=== PATIENT | male | born 1960 | race Caucasian/White ===

== ENCOUNTER 2022-03-11 08:49 | Outpatient (REF) | payer BC, SELFPAY ==
[2022-03-11 10:26] LABS: MANUAL DIFF FLAG NO
[2022-03-11 10:29] LABS: Basophils Percent Auto 0.4 % (0-2); Eosinophils Percent Auto 0.7 % (0-4); Hematocrit 43.8 % (42.0-52.0); Hemoglobin 14.5 g/dl (14.0-18.0); Imm Gran Abs Auto 0.02 X10*3/uL (0.00-0.03); Imm Gran Pct Auto 0.4 % (0.0-0.4); Lymphocytes Absolute Auto 1.3 X10*3/uL (1.2-4.9); Lymphocytes Percent Auto 23.2 % (20-40); Mean Corpuscular HGB Conc 33.1 g/dl (31.0-36.0); Mean Corpuscular Hemoglobin 31.9 pg (27.0-33.0); Mean Corpuscular Volume 96.3 fL (80.0-98.0); Mean Platelet Volume 9.4 fL (9.4-12.4); Monocytes Absolute Auto 0.8 X10*3/uL (0.1-1.2); Neutrophils Absolute Auto 3.4 x10*3/uL (2.0-8.3); Neutrophils Percent Auto 61.3 % (45-73); Platelet Count 266 X10*3/uL (160-400); Red Blood Count 4.55 X10*6/uL (4.60-5.80); Red Cell Distribution Width 12.8 % (11.0-16.0); White Blood Count 5.6 X10*3/uL (4.8-10.8)
[2022-03-11 10:38] LABS: C Reactive Protein 0.13 mg/dL (< or = 0.50)
[2022-03-11 11:13] LABS: Erythrocyte Sedimentation Rate 5 MM/HR (0-15)
== END 2022-03-11 08:50 | disposition home or self-care (01) ==
LOC: HO.10HDL 08:49
PROVIDERS: Visit Provider Internal Medicine Rheumatology
DX: M48.10 Ankylosing hyperostosis [Forestier], site unspecified (principal); M47.22 Other spondylosis with radiculopathy, cervical region
CPT/HCPCS: 36415; 85025; 85652; 86140

== ENCOUNTER 2022-03-11 09:05 | Outpatient (REF) | payer BC, SELFPAY ==
--- NOTE | ~2022-03-11 | XR_ITS ---
EXAMINATION: XR SACROILIAC JOINTS CLINICAL INFORMATION: Spondylosis without radiculopathy COMPARISON: None TECHNIQUE: 3 views of the sacroiliac joints FINDINGS: Bone alignment is normal. No fracture or dislocation is seen. There is bilateral proliferative sacroiliitis. There is question of partial ankylosis bilaterally. There are severe degenerative changes of the visualized lower lumbar spine with large bridging vertebral body bony osteophytes. There is arthritis at both hip joints with large osteophytes. XR/XR sacroiliac joint min 3V IMPRESSION: Bilateral proliferative bone sacroiliitis question partial ankylosis. Severe degenerative changes of the lumbar spine and hip joints.
== END 2022-03-11 09:06 | disposition home or self-care (01) ==
LOC: HO.XRAY 09:05
PROVIDERS: PCP Internal Medicine; Visit Provider Internal Medicine Rheumatology
DX: M47.22 Other spondylosis with radiculopathy, cervical region (principal); M48.10 Ankylosing hyperostosis [Forestier], site unspecified
CPT/HCPCS: 72202

== ENCOUNTER 2022-03-23 11:04 | Outpatient (REF) | payer BC, SELFPAY ==
[2022-03-24 08:06] LABS: HBS Num1 0.62 mIU/mL (0-7.99); HBsAGNum1 0.31 S/CO (0.00-0.99); Hepatitis B Core Antibody Nonreactive (Nonreactive); Hepatitis B Surface Antigen Negative (Negative); ~HepC Num1 0.11 S/CO (0.00-0.79); ~Hepatitis A Antibody IgM Nonreactive (Nonreactive); ~Hepatitis B Surface Antibody NONREACTIVE (Nonreactive); ~Hepatitis C Antibody Nonreactive (Nonreactive)
[2022-03-26 01:19] LABS: TS Negative Control Passed; TS Panel A 0; TS Panel B 0; TS Positive Control Passed; TSpotTB Negative (Negative)
== END 2022-03-23 11:05 | disposition home or self-care (01) ==
LOC: HO.10HDL 11:04
PROVIDERS: Visit Provider Internal Medicine Rheumatology
DX: Z11.1 Encounter for screening for respiratory tuberculosis (principal); M45.9 Ankylosing spondylitis of unspecified sites in spine; Z79.60 Long term (current) use of unspecified immunomodulators and immunosuppressants
CPT/HCPCS: 36415; 86481; 86704; 86706; 86709; 86803; 87340

== ENCOUNTER → 2022-06-10 10:00 | Outpatient (BNVA) | payer BC, SELFPAY | PROVIDERS: PCP Internal Medicine; Visit Provider Internal Medicine Rheumatology | DX: Z13.89 Encounter for screening for other disorder (principal) ==

== ENCOUNTER → 2022-09-01 08:38 | Outpatient (BNVA) | payer BC, SELFPAY | PROVIDERS: PCP Internal Medicine; Visit Provider Internal Medicine Rheumatology ==

== ENCOUNTER → 2022-10-05 08:50 | Outpatient (BNVA) | payer BC, SELFPAY | PROVIDERS: PCP Internal Medicine; Visit Provider Internal Medicine ==

== ENCOUNTER 2022-10-15 07:20 | Outpatient (REF) | payer BC, SELFPAY ==
--- NOTE | ~2022-10-15 | CT_ITS ---
EXAMINATION: CT CERVICAL SPINE WITHOUT CONTRAST CLINICAL INFORMATION: 62-year-old with spondylosis with radiculopathy, cervical region. COMPARISON: None available. TECHNIQUE: Volumetric CT imaging of the cervical spine was done without IV contrast, with standard axial, coronal and sagittal reconstructions. Note that oblique axial reconstructions through the disc spaces were not performed and therefore the interpretation is limited in this regard. This CT examination was performed using dose optimization techniques as appropriate, variously including the following: *Automated exposure control *Adjustment of mA and/or kV according to patient size (this includes techniques or standardized protocols for targeted exams where dose is matched to indication/reason for exam; i.e. extremities or head) *Use of iterative reconstruction technique DLP: 372 mGy-cm FINDINGS: The cervical spine is anatomically aligned. The craniocervical junction and C1-C2 articulations are intact and aligned. There is limited assessment of the included intracranial soft tissue structures. Within these limitations, there is suspicion for a remote left PICA territory infarct in the cerebellar hemisphere. Correlate with clinical history. The visualized calvarium is intact. There is a probable retention cyst in the posterior right ethmoid complex. There are arthritic changes at the atlantodental joint. Dystrophic calcification of ligamentous structures adjacent to the dens. There is multilevel anterior marginal spondylosis deformans, with ossification of the anterior longitudinal ligament at multiple levels, suggesting the possibility of diffuse idiopathic skeletal hyperostosis (DISH.) C2-C3: Ossification of the posterior longitudinal ligament noted with flattening of the dural sac and probable cord impingement with moderate central spinal canal stenosis, asymmetric to the right. Uncovertebral arthrosis is noted bilaterally without significant neural foraminal stenosis. C3-C4: Ossification of the posterior longitudinal ligament also noted at this level with central disc osteophyte complex asymmetric to the right probably impinging on the spinal cord on the right with moderate central spinal canal stenosis asymmetric to the right. There is uncovertebral arthrosis, right more than left and mild facet arthrosis bilaterally with moderate to severe bilateral neural foraminal stenosis, right more than left. C4-C5: Ossification of the posterior longitudinal ligament again noted at this level with underlying disc osteophyte complex, with flattening of the ventral dural sac and probable ventral cord impingement with moderate central spinal canal stenosis. There is uncovertebral spurring bilaterally with moderate bilateral facet arthropathy left more than right. There is moderate to severe bilateral neural foraminal stenosis. C5-C6: Broad-based disc osteophyte complex noted with flattening of the ventral dural sac, possibly abutting and/or impinging on the ventral spinal cord with ugkb-vp-lyxpclvo spinal canal stenosis. Bilateral uncovertebral spurring is noted with [id number] facet arthropathy bilaterally and with severe right-sided and moderate left-sided neural foraminal stenosis. C6-C7: Ossification of the posterior longitudinal ligament suspected on the right with posterior disc osteophyte complex/osteophytic ridging, with flattening of the ventral dural sac asymmetric to the right possibly impinging on the ventral spinal cord to the right of midline with mild spinal canal stenosis. There is uncovertebral spurring and facet arthropathy with moderate to severe bilateral neural foraminal stenosis, right more than left. C7-T1: Broad-based posterior osteophytic ridging possibly with some calcification of the PLL, with flattening of the ventral dural sac and mild spinal canal stenosis. There is facet hypertrophic changes bilaterally left more than right with partial ankylosis of both facet joints without significant neural foraminal stenosis. Similar findings of the calcification or ossification of the posterior longitudinal ligament at T1-T2, T2-T3 and T3-T4 and osteophytic ridging at these levels with facet arthropathy and partial facet joint ankylosis bilaterally at these levels. There is severe right-sided neural foraminal stenosis at T2-T3 with probable impingement on the exiting right T2 nerve root. The visualized upper lung parenchyma is unremarkable. The visualized extraspinal soft tissue structures are grossly unremarkable. There are some atheromatous calcifications of the left carotid bulb. Suggest correlation for any bruits. CT/CT cervical spine wo IV con IMPRESSION: 1. Multilevel spondylosis deformans, probable DISH, with ossification of the posterior longitudinal ligament at multiple levels, with multilevel disc osteophyte complexes and ossification of the PLL, as described above, with multilevel [id number] and moderate degrees of spinal canal stenosis with probable cord impingement, most apparent at C3-C4 and C4-C5 and multilevel bilateral neural foraminal stenosis, most apparent on the right at C3-C4. 2. Multilevel spondylosis deformans, as described above, with multilevel ossification of the posterior longitudinal ligament, with multilevel bilateral facet arthropathy and partial ankylosis of the facet joints at multiple levels bilaterally. 3. Multilevel bilateral neural foraminal stenosis, most apparent on the right at T2-T3 with probable impingement on the exiting right T2 nerve root and most likely other levels of nerve root impingement as suggested above. 4. Atheromatous calcifications of the left carotid bulb. Suggest correlation for any bruits. 5. 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 Correlate with clinical history. Fleischner guidelines were followed.
== END 2022-10-15 07:21 | disposition home or self-care (01) ==
LOC: HO.CT 07:20
PROVIDERS: Visit Provider Internal Medicine
DX: M47.22 Other spondylosis with radiculopathy, cervical region (principal); M48.10 Ankylosing hyperostosis [Forestier], site unspecified
CPT/HCPCS: 72125

== ENCOUNTER 2022-11-11 06:02 | Outpatient (REF) | payer BC, SELFPAY ==
--- NOTE | ~2022-11-11 | FL_ITS ---
EXAMINATION: XR FLUOROSCOPY WITH IMAGES CLINICAL INFORMATION: Spondylosis with radiculopathy, cervical region. Bilateral cervical spine injections. COMPARISON: None available. TECHNIQUE: Fluoroscopy Supervised By: Dr. Lee Sotelo. Fluoroscopy Time: 0.3 minutes. Cumulative Dose: 1.87 mGy. DAP: 0.299 Gycm2. Images: 4. FINDINGS: There are 4 digital images obtained of the cervical spine with needle positioned along the posterior elements at C4, C5 and C6 vertebra. The visualized bones and the intervening disc spaces are normal. FL/FL guidance in treatment room IMPRESSION: Fluoroscopy guidance was provided to referring physician for pain management studies.
== END 2022-11-11 06:03 | disposition home or self-care (01) ==
LOC: CF 06:02
PROVIDERS: Visit Provider Internal Medicine
DX: M47.812 Spondylosis without myelopathy or radiculopathy, cervical region (principal); M75.100 Unspecified rotator cuff tear or rupture of unspecified shoulder, not specified as traumatic
CPT/HCPCS: 64490

== ENCOUNTER 2022-11-11 08:53 | Outpatient (AMB) | payer BC, SELFPAY ==
[2022-11-11 09:05] VITALS: BP 130/62; PULSE 68; RESP 14; O2SAT 99
--- NOTE | 2022-11-11 09:05 | A.OFFVIS_ITS ---
Intake Vital Signs 11/11/22 09:05 BP 130/62 Blood Pressure Location Rt brachial Position Sitting Respiration 14 Pulse 68 Pulse Source Pulse Oximeter Pulse Oximetry (%) 99 Oxygen Delivery Method Room Air Intake Visit Reasons: dain Dx C4-C5-C6 MBB/left thera subacromial inj Allergies No Known Allergies Allergy (Verified 11/11/22 09:06) HPI dain Dx C4-C5-C6 MBB/left thera subacromial inj HPI Details Patient presents for scheduled procedure. Denies any recent cough, cold, infection, fever or other significant changes in medical history since last office visit. [facility] Medical History Actinic keratosis Carpal tunnel syndrome Cervical spondylosis with radiculopathy Chronic rhinitis CVA (cerebral vascular accident) DISH (disseminated idiopathic skeletal hyperostosis) Diverticulosis Elevated PSA Enlarged testicle Erectile dysfunction Hx of basal cell carcinoma Hypertension Lesion of liver Obesity Osteoarthritis Right homonymous hemianopsia Tinea pedis Surgical History History of carpal tunnel release Normal colonoscopy S/P anal fissurectomy Family History Father CVA (cerebral vascular accident) Hx of CABG Paternal Grandfather CVA (cerebral vascular accident) Myocardial infarct Brother No problems noted. Social History Household Members: Spouse Housing: House Are you a primary care coordinator to a significant other at home: No Do you presently have visiting nurse or other home services: No Alcohol intake: current Alcohol intake frequency: a few times a week Alcohol type: beer Patient Tobacco Use Status: Never used Tobacco e-Cigarette/Vaping Use: Never Used service: No Current occupational status: retired Current occupation: former teacher Physical Exam Vital Signs: Last Vital Signs Pulse 68 11/11/22 09:05 Resp 14 11/11/22 09:05 BP 130/62 11/11/22 09:05 Pulse Ox 99 11/11/22 09:05 Oxygen Delivery Method Room Air 11/11/22 09:05 Office Procedures Cervical/Thoracic Facet Inj Details: Diagnostic Cervical Medial Branch Block, Bilateral C4, C5, C6 medial branches After obtaining written consent, pre-procedure blood pressure and pulse were rec orded and are in the nursing record for review. The patient was placed in a lateral position. The respective cervical area was prepped with chloraprep and draped in sterile fashion. The skin over the target medial branch nerves was anesthetized with 0.5% lidocaine. A 25 gauge 1.5 inch needle was inserted into the target medial branch nerve under fluoroscopic guidance. No paresthesias were elicited with needle placement and aspiration was negative for blood and CSF. Next, 0.2cc of omnipaque 180 was injected to verify positioning. Next 0.5 ml 0.5% ropivicaine was injected (0.5 cc total per level). The identical procedure was performed at the remaining levels. The skin was cleansed and a sterile bandage was applied. Following the procedure the patient's vital signs were stable. He complained of a transient tinnitis with injection near the left C4 facet, which resolved after a few minutes. The patient tolerated the procedure well and no complications were encountered. Following the procedure the patient's vital signs were stable. The patient was discharged home in good condition with post-procedural instructions. Time Out: Immediately prior to the procedure, the following was verbally confirmed that there is a signed consent form and that the correct patient, planned procedure, site and side are consistent with documentation and that necessary equipment and/or blood products are available prior to the start of the case. Complications: none EBL: <5 cc 77049 - second level, with Fluoroscopy (bilateral) Procedure code (CPT) selection complete Assessment & Plan Assessment & Plan (1) Spondylosis, cervical: Code(s): M47.812 - Spondylosis without myelopathy or radiculopathy, cervical region Plan Patient is status post bilateral C4, C5, C6 diagnostic MBBs . Patient tolerated procedure well and was discharged home in stable condition with discharge instructions. All questions were answered. We will follow-up via telephone or in clinic to assess response to therapy. A follow-up appointment was made during today's visit. Orders: Orders FL guidance in treatment room Today M75.100 - Unspecified rotator cuff tear or rupture of unspecified shoulder, not specified as traumatic FL guidance in treatment room Today M47.22 - Other spondylosis with radiculopathy, cervical region Coding Level of Care Code Procedure Only Diagnoses Spondylosis, cervical M47.812 CPT Codes Facet Injection Cervical/Thoracic - CPT: 18413 - second level, with Fluoroscopy ([id number])
== END 2022-11-11 10:21 | disposition home or self-care (01) ==
PROVIDERS: PCP Internal Medicine; Visit Provider Internal Medicine
DX: M47.812 Spondylosis without myelopathy or radiculopathy, cervical region (principal)
CPT/HCPCS: 64490

== ENCOUNTER 2022-11-13 11:31 | Outpatient (AMB) | payer BC, SELFPAY ==
--- NOTE | 2022-11-13 11:35 | MHC.OFFVIS ---
Intake Intake Visit Reasons: Left theraputic subacromial injection Allergies No Known Allergies Allergy (Verified 11/11/22 09:06) HPI Left theraputic subacromial injection HPI Details 62-year-old male presenting today for a left therapeutic subacromial injection. Patient presents for scheduled procedure. Denies any recent cough, cold, infection, fever or other significant changes in medical history since last office visit. From his cervical medial branch block, the patient reports about 80% pain relief, but he did get some lightheadedness and pounding in his left ear that made him feel a little queasy and unwell the day of the injection. He is not too keen on pursuing further neck interventions at this time. Past procedure: 11/11/22: Diagnostic Cervical Medial Branch Block, Bilateral C4, C5, C6 medial branches: 50% relief. [facility] Medical History Actinic keratosis Carpal tunnel syndrome Cervical spondylosis with radiculopathy Chronic rhinitis CVA (cerebral vascular accident) DISH (disseminated idiopathic skeletal hyperostosis) Diverticulosis Elevated PSA Enlarged testicle Erectile dysfunction Hx of basal cell carcinoma Hypertension Lesion of liver Obesity Osteoarthritis Right homonymous hemianopsia Tinea pedis Surgical History History of carpal tunnel release Normal colonoscopy S/P anal fissurectomy Family History Father CVA (cerebral vascular accident) Hx of CABG Paternal Grandfather CVA (cerebral vascular accident) Myocardial infarct Brother No problems noted. Social History Household Members: Spouse Housing: House Are you a primary progressive care manager to a significant other at home: No Do you presently have visiting nurse or other home services: No Alcohol intake: current Alcohol intake frequency: a few times a week Alcohol type: beer Patient Tobacco Use Status: Never used Tobacco e-Cigarette/Vaping Use: Never Used service: No Current occupational status: retired Current occupation: former teacher Review of Systems Const All systems reviewed & are unremarkable except as noted in HPI and below Physical Exam General: Appears afebrile. Alert and oriented. Mood and affect appropriate. Follows and participates in conversation appropriately. Respiratory effort is unlabored. Able to transition from sit to stand unassisted. Ambulates with bilaterally normal heel strike and toe off. Office Procedures Joint Injection/Drain Joint Injection/Drain Primary Site: left shoulder Secondary Site: left shoulder Prep: site was prepped using aseptic technique and site was prepped using sterile technique Injected: 20 mg of (kenalog with 2 cc of bupivacaine at each site. ), Kenalog, with 3 mL of, 0.25% bupivacaine, in the subcromial space (on left side) and other (And the bicipital groove) Approach Used: posterolateral Procedure: The patient tolerated the procedure well Coding - Bicipital Groove Injection (Left) - Glenohumeral/Tronchanteric Bursa/Intraarticular (Subacromial) Procedure code (CPT) selection complete Results Reviewed Results Reviewed: No imaging is available for review. Assessment & Plan Assessment & Plan (1) Rotator cuff syndrome: Code(s): M75.100 - Unspecified rotator cuff tear or rupture of unspecified shoulder, not specified as traumatic (2) Spondylosis, cervical: Code(s): M47.812 - Spondylosis without myelopathy or radiculopathy, cervical region Plan 1. Patient is status post left therapeutic subacromial bursa and bicipital groove injections. Follow up for shoulder injections as needed. 2. For his neck pain, we discussed potential topical treatments, including Voltaren gel, salonpas, and biofreeze, and if those are not helpful, we can consider trigger point injections in the future and if that is not helpful, we can consider cervical medial branch nerve stimulator placement. Scribed for Dr. Sotelo by Chad Perez, medical practice manager, on 11/13/2022. I, Dr. Sotelo, have personally reviewed and agree with the information entered by the scribe. Coding Level of Care Code Est Pt Level 3 (54114) Diagnoses Rotator cuff syndrome M75.100 Spondylosis, cervical M47.812 CPT Codes Coding - Joint 1: - Bicipital Groove Injection ([id number]) Coding - Joint 7: - Glenohumeral/Tronchanteric Bursa/Intraarticular ([id number])
== END 2022-11-13 12:09 | disposition home or self-care (01) ==
PROVIDERS: PCP Internal Medicine; Visit Provider Internal Medicine
DX: M75.100 Unspecified rotator cuff tear or rupture of unspecified shoulder, not specified as traumatic (principal); M47.812 Spondylosis without myelopathy or radiculopathy, cervical region
CPT/HCPCS: 20550; 20610

== ENCOUNTER → 2022-11-13 11:31 | Outpatient (BNVA) | payer BC, SELFPAY | PROVIDERS: PCP Internal Medicine; Visit Provider Internal Medicine | DX: M47.22 Other spondylosis with radiculopathy, cervical region (principal); M48.12 Ankylosing hyperostosis [Forestier], cervical region; M75.102 Unspecified rotator cuff tear or rupture of left shoulder, not specified as traumatic | CPT/HCPCS: 20550; 20610; J3301 ==

== ENCOUNTER 2023-01-26 08:30 | Outpatient (AMB) | payer BC, SELFPAY ==
--- NOTE | 2023-01-26 08:34 | MHC.OFFVIS ---
Intake Vital Signs 01/26/23 08:45 Height 6 ft Weight 189 lb 13.088 oz BMI 25.7 BP 140/60 H Blood Pressure Location Lt brachial Position Sitting Pulse 81 Pulse Source Pulse Oximeter Temp 97.2 F Temp Source Skin Pulse Oximetry (%) 100 Oxygen Delivery Method Room Air Intake Visit Reasons: DISH Intake Note: Patient presents today to follow up on DISH. Industrial Hygenist Required: No Accompanied by: Self / Same As Patient Allergies No Known Allergies Allergy (Verified 01/26/23 08:35) Medication List - Last Reconciled 01/26/23 by Lalit Raines MD acetaminophen ER (Tylenol 8 Hour) 1,300 mg PO DAILY alfuzosin ER 10 mg PO DAILY amlodipine 5 mg PO DAILY atorvastatin 80 mg PO BEDTIME azelaic acid 15% 1 appl topical BID clopidogrel (Plavix) 75 mg PO DAILY fexofenadine (Sendy Allergy) 180 mg PO DAILY gabapentin 100 - 200 mg (1 - 2 x 100 mg) PO BEDTIME garlic 1,000 mg PO DAILY losartan 25 mg PO DAILY multivitamin 1 tab PO DAILY omega 0-wmr-yac-fish oil 1,000 mg (120 mg-180 mg) (Fish Oil) 1 cap PO DAILY tadalafil (Cialis) 5 mg PO DAILY PRN turmeric mg PO HPI HPI Comments History of Present Illness Details The patient returns for evaluation of his DISH syndrome. Earlier in the year I tried him on Humira to see if that might have provoked a positive response but he felt no better. Most recently he has been bothered by neck pain and stiffness. He did visit the [facility] Management [facility]. They did an attempted nerve block. The patient reports this caused severe tinnitus and a loud noise in the ears. There was an offer to retry that but he declined. He also had a left shoulder injection because of persistent shoulder pain but that did not seem to help much and caused a lot of bruising. Currently he is taking 1 Tylenol Arthritis in the evening. That helps to some degree. He says he has developed greater anxiety about visiting medical doctors because of the discomfort of the procedures. This usually results in some elevation of his systolic blood pressures. He does monitor them at home and they seem reasonably controlled. He does occasionally use the gabapentin at night for pain. [facility] Medical History Actinic keratosis Carpal tunnel syndrome Cervical spondylosis with radiculopathy Chronic rhinitis CVA (cerebral vascular accident) DISH (disseminated idiopathic skeletal hyperostosis) Diverticulosis Elevated PSA Enlarged testicle Erectile dysfunction Hx of basal cell carcinoma Hypertension Lesion of liver Obesity Osteoarthritis Right homonymous hemianopsia Tinea pedis Surgical History S/P anal fissurectomy History of carpal tunnel release Normal colonoscopy Family History Father CVA (cerebral vascular accident) Hx of CABG Paternal Grandfather CVA (cerebral vascular accident) Myocardial infarct Brother No problems noted. Social History Household Members: Spouse Housing: House Are you a primary pet care assistant to a significant other at home: No Do you presently have visiting nurse or other home services: No Alcohol intake: current Alcohol intake frequency: a few times a week Alcohol type: beer Patient Tobacco Use Status: Never used Tobacco e-Cigarette/Vaping Use: Never Used service: No Current occupational status: retired Current occupation: former teacher Review of Systems Const Details: Negative for appetite change, weight change, fever, chills, malaise and fatigue Eyes Details: Negative for vision change, dry eyes,headaches and dizziness Skin/Breast Details: Negative for itching, rash, hives, Raynaud's symptoms, sun sensitivity, and skin cancer Neuro Details: There is occasional tingling in the fingertips. Negative for epilepsy, palsy, stroke, changes in speech and weakness Johnnie/Lymph Details: Negative for excessive bruising or bleeding. Physical Exam Vital Signs: Last Vital Signs Temp 97.2 F 01/26/23 08:45 Pulse 81 01/26/23 08:45 BP 140/60 H 01/26/23 08:45 Pulse Ox 100 01/26/23 08:45 Oxygen Delivery Method Room Air 01/26/23 08:45 BMI result Body Mass Index 25.7 APPEARANCE: Patient in no acute distress EYES no redness, pupils equal and reactive to light, eyelids normal EXTREMITIES: No edema, no calf tenderness, normal peripheral pulses. JOINT EXAM: Cervical Spine:? Lateral flexion limited at 5 degrees but without pain.? Lateral rotation to the right is intact to 20 degrees and to 30 degrees to the left.? Mild pain at the extremes of motion.? No tenderness.? With his heels against the wall he has limitation of extension.? There is about 10 cm between his occiput in the wall. Thoracic Spine:.? No scoliosis.? Mild tenderness just medial to the scapula.? No tenderness over the vertebral spines.? Minimal motion with lateral Claire's. Lumbar Spine:.? Alignment normal.? Less than 1 cm motion with a Claire's test.? No tenderness. Chest Wall:.? No tenderness, swelling, increased warmth or erythema. Hands:.? Right:? Mild bony enlargement at the 2nd, 3rd and 5th PIP joints without tenderness.? Elsewhere no soft tissue swelling or tenderness.? Left:? Mild bony enlargement without tenderness at the thumb IP and the 2nd PIP joint.? Elsewhere no swelling or tenderness.? Wrists:.? Normal pain-free range of motion without tenderness, swelling, increased warmth or erythema. Elbows:. Normal pain-free range of motion without tenderness, swelling, increased warmth or erythema. Shoulders:.??Abduction is limited to about 150 degrees in both shoulders.? She has some limitation of motion to rotation as well with mild discomfort.? Slight anterior tenderness without abductor weakness or adenopathy. Hips:? Right:? Internal rotation limited at about 5 degrees and external rotation limited at about 10 degrees.? At the extremes of motion there is some lower back discomfort.? Left:? Some mild limitation of internal external rotation with some back and buttock pains. Hip bursa:.? No tenderness. Knees:.??Right:? Mild patellofemoral crepitus and discomfort with extremes of flexion extension.? There is some minimal medial compartment tenderness without redness or effusion.? Left:? Normal pain-free range of motion with mild patellofemoral crepitus but no effusion, tenderness, swelling, increased warmth or erythema.? There is no effusion or crepitation Ankles:.? Normal pain-free range of motion without tenderness, swelling, increased warmth or erythema. Feet:? Normal pain-free range of motion without tenderness, swelling, increased warmth or erythema. Tender points:? No tenderness to digital palpation at the occiput, trapezius, second rib, lateral epicondyle, knees, greater trochanter and gluteal area bilaterally. ? Assessment & Plan Assessment & Plan (1) Osteoarthritis, hip, bilateral: Code(s): M16.0 - Bilateral primary osteoarthritis of hip (2) DISH (disseminated idiopathic skeletal hyperostosis): Code(s): M48.10 - Ankylosing hyperostosis [[place]], site unspecified Plan His mostly axial symptoms continue. There is help with acetaminophen and gabapentin at times. He has significant limitation of motion all along the spine consistent with DISH and/or . I tried to use a TNF inhibitor for the possiblity that he had active but that did not seem to make any improvement. I told him we could consider other trials of medications for ankylosing spondylitis but he is not particularly interested at present. I encouraged him to stay active with light aerobic activity and gentle stretching of the area. We will suggest a rheumatology re-evaluation here in about 6 months. Coding Level of Care Code Est Pt Level 3 (08380) Diagnoses Osteoarthritis, hip, bilateral M16.0 DISH (disseminated idiopathic skeletal hyperostosis) M48.10
[2023-01-26 08:45] VITALS: BP 140/60; PULSE 81; TEMP 36.2; O2SAT 100; BMI 25.7
== END 2023-01-26 09:24 | disposition home or self-care (01) ==
PROVIDERS: PCP Internal Medicine; Visit Provider Internal Medicine Rheumatology
DX: M16.0 Bilateral primary osteoarthritis of hip (principal); M48.10 Ankylosing hyperostosis [Forestier], site unspecified
CPT/HCPCS: 99213

== ENCOUNTER → 2023-01-26 08:30 | Outpatient (BNVA) | payer BC, SELFPAY | PROVIDERS: PCP Internal Medicine; Visit Provider Internal Medicine Rheumatology ==

== ENCOUNTER 2023-07-28 08:13 | Outpatient (AMB) | payer BC, SELFPAY ==
--- NOTE | 2023-07-28 08:16 | MHC.OFFVIS ---
Intake Vital Signs 07/28/23 08:23 Height 6 ft Weight 193 lb 9.054 oz BMI 26.2 BP 162/70 H Blood Pressure Location Rt brachial Position Sitting Pulse 79 Pulse Source Pulse Oximeter Pulse Oximetry (%) 97 Oxygen Delivery Method Room Air Intake Visit Reasons: DISH with Intake Note: Patient last seen by Dr Raines on 01/26/23 presents today for DISH. 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 Accompanied by: Self / Same As Patient Allergies No Known Allergies Allergy (Verified 07/28/23 08:17) Medication List - Last Reconciled 07/28/23 by Indigo Angulo MD acetaminophen ER (Tylenol 8 Hour) 1,300 mg PO DAILY alfuzosin ER 10 mg PO DAILY amlodipine 5 mg PO DAILY atorvastatin 80 mg PO BEDTIME azelaic acid 15% 1 appl topical BID clopidogrel (Plavix) 75 mg PO DAILY fexofenadine (Sendy Allergy) 180 mg PO DAILY gabapentin 100 - 200 mg (1 - 2 x 100 mg) PO BEDTIME garlic 1,000 mg PO DAILY losartan 25 mg PO DAILY multivitamin 1 tab PO DAILY omega [id number]-fish oil 1,000 mg (120 mg-180 mg) (Fish Oil) 1 cap PO DAILY tadalafil (Cialis) 5 mg PO DAILY PRN turmeric mg PO HPI HPI Comments History of Present Illness Details 62-year-old male with DISH returns for follow-up. He states that he feels about the same overall. A little more stiff. He does stretching exercises daily. States that when he was on Humira, he felt worse. States that since after being on the Humira his symptoms have been worse. States that he no longer takes the gabapentin. He denies any history of uveitis. No history suggestive of inflammatory bowel disease. There is no known family history of an autoimmune rheumatic disease Most recent history by Dr. Raines 01/2023: The patient returns for evaluation of his DISH syndrome. Earlier in the year I tried him on Humira to see if that might have provoked a positive response but he felt no better. Most recently he has been bothered by neck pain and stiffness. He did visit the [facility]. They did an attempted nerve block. The patient reports this caused severe tinnitus and a loud noise in the ears. There was an offer to retry that but he declined. He also had a left shoulder injection because of persistent shoulder pain but that did not seem to help much and caused a lot of bruising. Currently he is taking 1 Tylenol Arthritis in the evening. That helps to some degree. He says he has developed greater anxiety about visiting medical doctors because of the discomfort of the procedures. This usually results in some elevation of his systolic blood pressures. He does monitor them at home and they seem reasonably controlled. He does occasionally use the gabapentin at night for pain. [facility] Medical History (Updated 07/28/23 @ 09:01 by Indigo Angulo MD) Achilles tendon rupture Right homonymous hemianopsia Tinea pedis Actinic keratosis Osteoarthritis Enlarged testicle Elevated PSA Hypertension CVA (cerebral vascular accident) Carpal tunnel syndrome DISH (disseminated idiopathic skeletal hyperostosis) Cervical spondylosis with radiculopathy Diverticulosis Hx of basal cell carcinoma Lesion of liver Erectile dysfunction Obesity Chronic rhinitis Surgical History S/P anal fissurectomy History of carpal tunnel release Normal colonoscopy Family History Father CVA (cerebral vascular accident) Hx of CABG Paternal Grandfather CVA (cerebral vascular accident) Myocardial infarct Brother No problems noted. Social History Household Members: Spouse Housing: House Are you a primary career services assistant to a significant other at home: No Do you presently have visiting nurse or other home services: No Alcohol intake: current Alcohol intake frequency: a few times a week Alcohol type: beer Patient Tobacco Use Status: Never used Tobacco e-Cigarette/Vaping Use: Never Used service: No Current occupational status: retired Current occupation: former teacher Review of Systems [employer] Details: Generalized stiffness Reports stiffness Physical Exam Vital Signs: Last Vital Signs Pulse 79 07/28/23 08:23 BP 162/70 H 07/28/23 08:23 Pulse Ox 97 07/28/23 08:23 Oxygen Delivery Method Room Air 07/28/23 08:23 BMI result Body Mass Index 26.2 Const General: cooperative, healthy appearing and comfortable Nutritional Appearance: overweight Orientation/consciousness: patient oriented x3 Limitations: no limitations HEENT Head: Yes normocephalic and Yes atraumatic Mouth: moist mucous membranes Resp Effort & Inspection: normal respiratory effort and able to speak in complete sentences Auscultation: clear to auscultation bilaterally Cardio Rate: regular rate Skin General skin exam: no rashes or lesions noted Neuro General: patient oriented x3 Extrem Other: Claire test 10-11 cm Significantly limited lateral flexion test bilaterally Significantly limited neck movement in all directions Osteoarthritic changes of both hands with no active synovitis Normal nailfold capillaroscopy Negative straight leg raise test bilaterally Negative Fabere test bilaterally Assessment & Plan Assessment & Plan (1) DISH (disseminated idiopathic skeletal hyperostosis): Code(s): M48.10 - Ankylosing hyperostosis [[place]], site unspecified Plan: 62-year-old male with dish returns for follow-up. This is his 1st visit with me. He used to follow-up with Dr. Raines for decades. Patient was tried on Humira last year for 3 months without improvement actually his symptoms got worse. He had a steroid injection left shoulder by Pain Management and it did not help also a nerve block in the neck was attempted but patient had significant tinnitus and the procedure was aborted. He continues to have significant axial symptoms. There is some suggestion of possible ankylosing spondylitis especially with his history of Achilles tendon rupture but little trauma as well radiographic findings of sacroiliitis however the lack of response to Humira generally argues against ankylosing spondylitis. There is no history of uveitis, no history suggestive of IBD. His inflammatory markers have been normal. We discussed this. Different treatment options, unfortunately patient is not a good candidate for chronic NSAIDs therapy given his age and comorbidities. Patient stopped taking gabapentin. Not find it very helpful. Today I suggested Flexeril trial. Follow-up in about 6 months Plan I spent 30 minutes reviewing patient's chart, evaluating patient, placing orders,, counseling patient and documenting in the chart Medications: New cyclobenzaprine orally bedtime; Take 1-2 tabs nightly 10 tabs 1RF Discontinued gabapentin Discontinued Reason: Patient no longer taking 100 - 200 mg (1 - 2 x 100 mg) PO BEDTIME 60 caps 5RF M47.22 - Other spondylosis with radiculopathy, cervical region Coding Level of Care Code Est Pt Level 4 (91758) Diagnoses DISH (disseminated idiopathic skeletal hyperostosis) M48.10
[2023-07-28 08:23] VITALS: BP 162/70; PULSE 79; O2SAT 97; BMI 26.2
== END 2023-07-28 08:56 | disposition home or self-care (01) ==
PROVIDERS: PCP Internal Medicine; Visit Provider Student in an Organized Health Care Education/Training Program
DX: M48.10 Ankylosing hyperostosis [Forestier], site unspecified (principal)
CPT/HCPCS: 99214

== ENCOUNTER → 2023-07-28 08:13 | Outpatient (BNVA) | payer BC, SELFPAY | PROVIDERS: PCP Internal Medicine; Visit Provider Student in an Organized Health Care Education/Training Program ==